=== PATIENT | female | born 1970 | race Hispanic/Latino ===

== ENCOUNTER 2017-08-20 06:06 | Day surgery (SDC) | payer MEDICAID ==
[~2017-08-20] VITALS: Ht 175.3 cm; Wt 61.1 kg
[~2017-08-20 06:06] MED LIST: IBUP-2353 PO; LORA10TA7 PO; [UNRECOGNIZED DRUG - MIXTURE] PO; [UNRECOGNIZED DRUG - REMARK] OU
[2017-08-20] MEDS ORDERED: SODIUM CHLORIDE 0.9% 1000ML 1,000 ML IV ONE (06:10)
[2017-08-20 06:46] VITALS: BP 121/56
== END 2017-08-20 08:00 | disposition home or self-care (01) ==
LOC: ENDO 06:06 → DAH 06:06 → ENDO 08:00
PROVIDERS: ATTEND Internal Medicine Gastroenterology
DX: K31.7 Polyp of stomach and duodenum (principal); K29.50 Unspecified chronic gastritis without bleeding; K22.8 Other specified diseases of esophagus; F41.9 Anxiety disorder, unspecified; E11.9 Type 2 diabetes mellitus without complications; K21.9 Gastro-esophageal reflux disease without esophagitis; Z79.899 Other long term (current) drug therapy; Z90.49 Acquired absence of other specified parts of digestive tract; Z98.890 Other specified postprocedural states
CPT/HCPCS: 43251; 43239; 81025; 82948; 88305; 88312; A4606; J7030